=== PATIENT | female | born 1940 | race Caucasian/White ===

== ENCOUNTER 2023-09-24 10:59 | Inpatient (IN) | payer OTHER ==
[2023-09-24] MEDS: methylPREDNISolone NA SUCC 125 MG/2 ML VIAL IVPB ONE (11:35)
[2023-09-24] MEDS: ALBUTEROL SO4 2.5/IPRATROPIUM 0.5 INH SOL 3 ML VIAL.NEB. NEB ONE (11:35)
[2023-09-24 11:55] LABS: VENOUS BASE EXCESS 3.4 mmol/L (-2-2); VENOUS O2 SATURATION 71.6 % (70-80); VENOUS PH 7.381 (7.310-7.410)
[2023-09-24 11:56] LABS: BASO % 0.5 % (0-2.0); EOS % 0.3 % (0-4.5); HEMATOCRIT 40.9 % (32.4-45.2); HEMOGLOBIN 13.2 GM/dL (10.7-15.3); LYMPH % 3.6 % (8-40); MCH 28.7 pg (25.7-33.7); MCHC 32.2 g/dl (32.0-36.0); MEAN CELL VOLUME 89.1 fl (80-96); MEAN PLT VOLUME 7.9 fl (7.5-11.1); NEUT % 89.6 % (42.8-82.8); PLATELET COUNT 208 10^3/uL (134-434); RBC 4.59 M/mm3 (3.60-5.2); RDW 14.4 % (11.6-15.6); WHITE BLOOD COUNT 7.8 K/mm3 (4.0-10.0)
[2023-09-24 12:24] LABS: PH,URINE 7.5 (5.0-8.0); URINE APPEARANCE CLEAR; URINE BILIRUBIN NEGATIVE (NEGATIVE); URINE COLOR DK YELLOW; URINE GLUCOSE (UA) NEGATIVE (NEGATIVE); URINE KETONE NEGATIVE (NEGATIVE); URINE LEUK ESTERASE NEGATIVE (NEGATIVE); URINE NITRITE NEGATIVE (NEGATIVE); URINE PROTEIN TRACE (NEGATIVE)
[2023-09-24 12:45] LABS: POTASSIUM 4.5 mmol/L (3.5-5.1)
[2023-09-24 12:46] LABS: CALCIUM 8.9 mg/dL (8.5-10.1)
[2023-09-24 12:47] LABS: ALBUMIN 3.4 g/dl (3.4-5.0); BLOOD UREA NITROGEN 18.2 mg/dL (7-18)
[2023-09-24 12:50] LABS: CREATININE 0.6 mg/dL (0.55-1.3)
[2023-09-24 12:52] LABS: BILIRUBIN,TOTAL 2.4 mg/dL (0.2-1); TOT PROT 6.2 g/dl (6.4-8.2)
[2023-09-24 12:55] LABS: N-TERMINAL BNP 646.9 pg/ml (5-450)
[2023-09-24 19:35] LABS: INR 1.12 (0.83-1.09)
[2023-09-24 19:38] LABS: ACTIVATED PTT 27.9 SECONDS (25.2-36.5)
[2023-09-24 20:06] LABS: POTASSIUM 4.2 mmol/L (3.5-5.1)
[2023-09-24 20:08] LABS: BLOOD UREA NITROGEN 15.5 mg/dL (7-18); CALCIUM 8.9 mg/dL (8.5-10.1)
[2023-09-24 20:09] LABS: ALBUMIN 3.3 g/dl (3.4-5.0)
[2023-09-24 20:11] LABS: CREATININE 0.6 mg/dL (0.55-1.3)
[2023-09-24 20:13] LABS: BILIRUBIN,TOTAL 2.1 mg/dL (0.2-1); TOT PROT 6.1 g/dl (6.4-8.2)
[2023-09-24 20:47] VITALS: BMI 29.1
[2023-09-24] MEDS: HEPARIN NA (PORCINE) 5,000 UNITS/ML 1ML VIAL SQ SCH (21:56)
[2023-09-25] MEDS: PIPERACILLIN/TAZOB 4.5 GM 4.5 GM in DEXTROSE 5%-WATER 100 ML IVPB ONE (01:35)
[2023-09-25 08:21] LABS: HEMATOCRIT 39.2 % (32.4-45.2); HEMOGLOBIN 12.8 GM/dL (10.7-15.3); MCH 28.8 pg (25.7-33.7); MCHC 32.5 g/dl (32.0-36.0); MEAN CELL VOLUME 88.5 fl (80-96); MEAN PLT VOLUME 8.5 fl (7.5-11.1); PLATELET COUNT 209 10^3/uL (134-434); RBC 4.43 M/mm3 (3.60-5.2); RDW 14.5 % (11.6-15.6); WHITE BLOOD COUNT 9.7 K/mm3 (4.0-10.0)
[2023-09-25 08:24] LABS: POTASSIUM 4.5 mmol/L (3.5-5.1)
[2023-09-25 08:31] LABS: CALCIUM 8.8 mg/dL (8.5-10.1)
[2023-09-25 08:32] LABS: BILIRUBIN,DIRECT 0.7 mg/dL (0.0-0.2); BLOOD UREA NITROGEN 21.8 mg/dL (7-18); MAGNESIUM 2.8 mg/dL (1.8-2.4)
[2023-09-25 08:33] LABS: PHOSPHOROUS 4.4 mg/dL (2.5-4.9); TOT PROT 5.8 g/dl (6.4-8.2)
[2023-09-25 08:34] LABS: BILIRUBIN,DIRECT 0.7 mg/dL (0.0-0.2); BILIRUBIN,TOTAL 1.4 mg/dL (0.2-1)
[2023-09-25 08:35] LABS: BILIRUBIN,TOTAL 1.4 mg/dL (0.2-1); CREATININE 0.6 mg/dL (0.55-1.3); TOT PROT 5.9 g/dl (6.4-8.2)
[2023-09-25] MEDS: PIPERACILLIN/TAZOB 3.375 GM 3.375 GM in DEXTROSE 5%-WATER - 50 ML IVPB SCH ×2 (08:36→17:29)
[2023-09-25] MEDS: ASPIRIN 81 MG CHEWABLE TABLETS PO SCH (09:31)
[2023-09-25] MEDS: DOCUSATE SODIUM 100 MG CAPSULE (FP) PO SCH (09:31)
[2023-09-25] MEDS: FAMOTIDINE 20 MG TABLET PO SCH (09:31)
[2023-09-25] MEDS: TIOTROPIUM BROMIDE 2.5 MCG (SPIRIVA) RESPIMAT INHALER IH SCH (09:31)
[2023-09-25] MEDS: ALBUTEROL SO4 2.5/IPRATROPIUM 0.5 INH SOL 3 ML VIAL.NEB. NEB SCH (09:56)
[2023-09-25] MEDS ORDERED: PATIENT'S OWN MEDICATION (NON-FORMULARY) (Carbidopa/Levodopa [Carbidopa-Levodopa 10-100 Ta PO SCH (10:00)
[2023-09-25] MEDS ORDERED: MAG HYDROX/AL HYDROX/SIMETH 30 ML UNIT-DOSE CUP PO PRN (11:40)
[2023-09-25] MEDS ORDERED: MAGNESIUM HYDROX 2400MG/30ML ORAL SUSPENSION 30 ML CUP PO PRN (11:40)
[2023-09-26] MEDS ORDERED: PIPERACILLIN/TAZOB 4.5 GM 4.5 GM in DEXTROSE 5%-WATER 100 ML IVPB SCH (02:00)
[2023-09-26] MEDS: PIPERACILLIN/TAZOB 4.5 GM 4.5 GM in DEXTROSE 5%-WATER 100 ML IVPB SCH (03:36)
[2023-09-26] MEDS: ASPIRIN COATED 81 MG TABLET.EC PO SCH (09:19)
[2023-09-26 10:07] LABS: BASO % 0.6 % (0-2.0); EOS % 2.1 % (0-4.5); HEMATOCRIT 38.5 % (32.4-45.2); HEMOGLOBIN 12.8 GM/dL (10.7-15.3); LYMPH % 7.5 % (8-40); MCH 29.2 pg (25.7-33.7); MCHC 33.2 g/dl (32.0-36.0); MEAN CELL VOLUME 87.8 fl (80-96); MEAN PLT VOLUME 8.7 fl (7.5-11.1); MONO % 8.1 % (3.8-10.2); NEUT % 81.7 % (42.8-82.8); PLATELET COUNT 227 10^3/uL (134-434); RBC 4.39 M/mm3 (3.60-5.2); RDW 15.1 % (11.6-15.6); WHITE BLOOD COUNT 9.1 K/mm3 (4.0-10.0)
[2023-09-26 10:26] LABS: POTASSIUM 4.4 mmol/L (3.5-5.1)
[2023-09-26 10:28] LABS: CALCIUM 8.7 mg/dL (8.5-10.1)
[2023-09-26 10:29] LABS: ALBUMIN 3.2 g/dl (3.4-5.0); BLOOD UREA NITROGEN 23.7 mg/dL (7-18)
[2023-09-26 10:32] LABS: CREATININE 0.6 mg/dL (0.55-1.3)
[2023-09-26 10:33] LABS: BILIRUBIN,TOTAL 0.8 mg/dL (0.2-1)
[2023-09-26] MEDS ORDERED: CARBIDOPA PO SCH (17:00)
[2023-09-26] MEDS ORDERED: LEVODOPA PO SCH (17:00)
[2023-09-26] MEDS: CARBIDOPA PO SCH (18:14)
[2023-09-26] MEDS: LEVODOPA PO SCH (18:14)
[2023-09-26] MEDS ORDERED: CARBIDOPA/LEVODOPA 25/100 TABLET (FP) PO SCH (22:00)
[2023-09-27] MEDS: LACTATED RINGERS SOLUTION 1,000 ML/1,000 ML INFUS.BAG IV SCH (09:45)
[2023-09-27] MEDS: ERTAPENEM SODIUM 1 GM in SODIUM CHLORIDE 50 ML IVPB SCH (19:30)
[2023-09-28 08:28] LABS: INR 1.02 (0.83-1.09); PROTHROMBIN TIME (PATIENT) 11.8 SEC (9.7-13.0)
[2023-09-28 08:30] LABS: BASO % 1.1 % (0-2.0); EOS % 3.9 % (0-4.5); HEMATOCRIT 38.5 % (32.4-45.2); HEMOGLOBIN 12.4 GM/dL (10.7-15.3); LYMPH % 21.9 % (8-40); MCH 28.5 pg (25.7-33.7); MCHC 32.3 g/dl (32.0-36.0); MEAN CELL VOLUME 88.4 fl (80-96); MEAN PLT VOLUME 8.6 fl (7.5-11.1); NEUT % 62.1 % (42.8-82.8); PLATELET COUNT 225 10^3/uL (134-434); RBC 4.35 M/mm3 (3.60-5.2); RDW 14.8 % (11.6-15.6); WHITE BLOOD COUNT 6.6 K/mm3 (4.0-10.0)
[2023-09-28 08:52] LABS: POTASSIUM 4.4 mmol/L (3.5-5.1)
[2023-09-28 08:55] LABS: CALCIUM 8.9 mg/dL (8.5-10.1)
[2023-09-28 08:56] LABS: ALBUMIN 2.8 g/dl (3.4-5.0); BLOOD UREA NITROGEN 24.2 mg/dL (7-18)
[2023-09-28 08:59] LABS: CREATININE 0.5 mg/dL (0.55-1.3)
[2023-09-28 09:01] LABS: BILIRUBIN,TOTAL 0.6 mg/dL (0.2-1); TOT PROT 5.4 g/dl (6.4-8.2)
[2023-09-28] MEDS: PANTOPRAZOLE 20 MG TABLET PO SCH (09:50)
[2023-09-29] MEDS: ACETAMINOPHEN 1000 MG/100 ML BAG IVPB ONE (07:09)
[2023-09-29 08:54] LABS: BASO % 0.8 % (0-2.0); EOS % 4.5 % (0-4.5); HEMATOCRIT 41.9 % (32.4-45.2); HEMOGLOBIN 13.4 GM/dL (10.7-15.3); LYMPH % 24.5 % (8-40); MCH 28.4 pg (25.7-33.7); MCHC 31.9 g/dl (32.0-36.0); MEAN PLT VOLUME 8.5 fl (7.5-11.1); NEUT % 60.2 % (42.8-82.8); PLATELET COUNT 250 10^3/uL (134-434); RBC 4.71 M/mm3 (3.60-5.2); RDW 14.9 % (11.6-15.6); WHITE BLOOD COUNT 7.4 K/mm3 (4.0-10.0)
[2023-09-29 09:40] LABS: POTASSIUM 4.5 mmol/L (3.5-5.1)
[2023-09-29 09:47] LABS: ALBUMIN 3.1 g/dl (3.4-5.0); BLOOD UREA NITROGEN 22.2 mg/dL (7-18); CALCIUM 9.2 mg/dL (8.5-10.1)
[2023-09-29 09:50] LABS: CREATININE 0.5 mg/dL (0.55-1.3)
[2023-09-29 09:52] LABS: BILIRUBIN,TOTAL 0.5 mg/dL (0.2-1)
[2023-09-29 16:09] LABS: IG G QN IMMUNOGLOBULIN 502 mg/dL (586-1602); IGG SUBCLASS 1 215 mg/dL (248-810); IGG SUBCLASS 2 180 mg/dL (130-555); IGG SUBCLASS 3 48 mg/dL (15-102)
[2023-09-29] MEDS: CARBIDOPA PO SCH (16:59)
[2023-09-29] MEDS: LEVODOPA PO SCH (16:59)
[2023-09-30 09:13] LABS: BASO % 0.9 % (0-2.0); HEMATOCRIT 40.6 % (32.4-45.2); HEMOGLOBIN 13.2 GM/dL (10.7-15.3); LYMPH % 20.5 % (8-40); MCH 28.9 pg (25.7-33.7); MCHC 32.6 g/dl (32.0-36.0); MEAN CELL VOLUME 88.6 fl (80-96); MEAN PLT VOLUME 8.6 fl (7.5-11.1); MONO % 9.2 % (3.8-10.2); NEUT % 65.4 % (42.8-82.8); PLATELET COUNT 250 10^3/uL (134-434); RBC 4.58 M/mm3 (3.60-5.2); RDW 14.5 % (11.6-15.6); WHITE BLOOD COUNT 7.6 K/mm3 (4.0-10.0)
[2023-09-30 09:34] LABS: POTASSIUM 4.6 mmol/L (3.5-5.1)
[2023-09-30 09:38] LABS: CALCIUM 9.1 mg/dL (8.5-10.1)
[2023-09-30 09:39] LABS: ALBUMIN 3.1 g/dl (3.4-5.0); BLOOD UREA NITROGEN 27.2 mg/dL (7-18)
[2023-09-30 09:43] LABS: CREATININE 0.5 mg/dL (0.55-1.3)
[2023-09-30 09:44] LABS: BILIRUBIN,TOTAL 0.5 mg/dL (0.2-1)
[2023-09-30] MEDS ORDERED: PROPOFOL 20 ML ONE (10:23)
[2023-09-30] MEDS ORDERED: DEXAMETHASONE SOD PHOSPHATE 4 MG/1 ML VIAL ONE (10:24)
[2023-09-30] MEDS ORDERED: LIDOCAINE HCL/PF 2% SDV 5ML VIAL ONE (10:24)
[2023-09-30] MEDS ORDERED: ROCURONIUM BROMIDE 50 MG/5 ML SYRINGE ONE ×2 (10:24→12:20)
[2023-09-30] MEDS ORDERED: ONDANSETRON 4 MG/2 ML VIAL ONE (10:24)
[2023-09-30] MEDS ORDERED: HEPARIN NA (PORCINE) 5,000 UNITS/ML 1ML VIAL ONE (10:25)
[2023-09-30] MEDS ORDERED: cefOXitin SODIUM 2 GM VIAL (RESTRICTED TO ID) IVPB ONE (10:25)
[2023-09-30] MEDS ORDERED: BUPIVACAINE HCL/PF 0.25% (2.5MG/ML) 10 ML VIAL ONE ×2 (10:25→10:56)
[2023-09-30] MEDS ORDERED: INDOCYANINE GREEN 25 MG/10 ML VIAL IVPUSH ONE (10:25)
[2023-09-30] MEDS ORDERED: ONDANSETRON 4 MG/2 ML VIAL IVPUSH PRN ×2 (10:52→14:16)
[2023-09-30] MEDS: BUPIVACAINE HCL/PF 0.25% (2.5MG/ML) 10 ML VIAL IJ ONE (12:20)
[2023-09-30] MEDS ORDERED: ACETAMINOPHEN INJECTION 100 ML IVPB ONE (12:22)
[2023-09-30] MEDS ORDERED: SUGAMMADEX SODIUM 200 MG/2 ML VIAL ONE (12:48)
[2023-09-30] MEDS ORDERED: oxyCODONE HCL 5 MG TABLET PO PRN (14:16)
[2023-09-30] MEDS ORDERED: MAG HYDROX/AL HYDROX/SIMETH 30 ML UNIT-DOSE CUP PO PRN (14:16)
[2023-09-30] MEDS: ACETAMINOPHEN 325 MG TABLET (FP) PO SCH (17:27)
[2023-09-30] MEDS: LACTATED RINGERS SOLUTION 1,000 ML IV SCH ×2 (17:28→19:22)
[2023-09-30] MEDS: CARBIDOPA/LEVODOPA 10/100 TABLET (FP) PO SCH ×2 (17:32→19:22)
[2023-10-01 09:07] LABS: BASO % 0.4 % (0-2.0); EOS % 0.9 % (0-4.5); HEMATOCRIT 35.6 % (32.4-45.2); HEMOGLOBIN 11.8 GM/dL (10.7-15.3); LYMPH % 14.7 % (8-40); MCH 29.2 pg (25.7-33.7); MCHC 33.1 g/dl (32.0-36.0); MEAN CELL VOLUME 88.1 fl (80-96); MONO % 10.1 % (3.8-10.2); NEUT % 73.9 % (42.8-82.8); PLATELET COUNT 250 10^3/uL (134-434); RBC 4.04 M/mm3 (3.60-5.2); RDW 14.9 % (11.6-15.6); WHITE BLOOD COUNT 9.5 K/mm3 (4.0-10.0)
[2023-10-01 09:44] LABS: POTASSIUM 4.4 mmol/L (3.5-5.1)
[2023-10-01 09:48] LABS: ALBUMIN 2.7 g/dl (3.4-5.0); BLOOD UREA NITROGEN 17.5 mg/dL (7-18); CALCIUM 8.9 mg/dL (8.5-10.1); MAGNESIUM 2.5 mg/dL (1.8-2.4)
[2023-10-01 09:50] LABS: CREATININE 0.4 mg/dL (0.55-1.3); PHOSPHOROUS 3.6 mg/dL (2.5-4.9)
[2023-10-01 09:52] LABS: BILIRUBIN,TOTAL 0.6 mg/dL (0.2-1)
[2023-10-01 09:53] LABS: TOT PROT 5.4 g/dl (6.4-8.2)
[2023-10-01] MEDS: PANTOPRAZOLE 20 MG TABLET PO SCH (10:14)
[2023-10-01] MEDS: ASPIRIN COATED 81 MG TABLET.EC PO SCH (10:14)
[2023-10-01] MEDS: ERTAPENEM SODIUM 1 GM in SODIUM CHLORIDE 50 ML IVPB SCH (10:16)
[2023-10-01] MEDS: TIOTROPIUM BROMIDE 2.5 MCG (SPIRIVA) RESPIMAT INHALER IH SCH (11:52)
[2023-10-02 15:32] VITALS: BP 109/54; PULSE 52; RESP 18; TEMP 98.1
== END 2023-10-02 16:53 | DRG 417 ==
LOC: JER 10:59 → JERBED 18:21 → J6S 20:03 → J8W 09-27 12:57
PROVIDERS: ADMIT Internal Medicine; ATTEND Internal Medicine
PROC: 8E0W4CZ Robotic Assisted Procedure of Trunk Region, Percutaneous Endoscopic Approach (ICD-10-PCS; 2023-09-30)
PROC: 0FT44ZZ Resection of Gallbladder, Percutaneous Endoscopic Approach (ICD-10-PCS; principal; 2023-09-30 10:30)
DX: B17.9 Acute viral hepatitis, unspecified (principal); G93.41 Metabolic encephalopathy; J96.01 Acute respiratory failure with hypoxia; K72.00 Acute and subacute hepatic failure without coma; K81.0 Acute cholecystitis; J44.1 Chronic obstructive pulmonary disease with (acute) exacerbation; R00.0 Tachycardia, unspecified; E78.5 Hyperlipidemia, unspecified; G20.A1 Parkinson's disease without dyskinesia, without mention of fluctuations; I10 Essential (primary) hypertension; R79.89 Other specified abnormal findings of blood chemistry; R29.6 Repeated falls; E80.6 Other disorders of bilirubin metabolism; K57.90 Diverticulosis of intestine, part unspecified, without perforation or abscess without bleeding; N28.1 Cyst of kidney, acquired; Z85.3 Personal history of malignant neoplasm of breast
CPT/HCPCS: 0241U-QW; 36415; 70450-TC; 71045-TC-FY; 71046-TC-FY; 71250-TC; 74177-TC; 74182-TC; 76705-TC; 80048; 80053; 80076; 80307; 81003; 82728; 82784; 82787; 82803; 82962; 83036; 83516; 83605; 83615; 83690; 83735; 83880; 83883; 84100; 84443; 84484; 85025; 85027; 85045; 85610; 85730; 86038; 86708; 86709; 86803; 86850; 86900; 86901; 87040; 87086; 87186; 87340; 87350; 87517; 87522; 87635; 88304-TC; 93005; 93010; 94010; 94640; 94760; 97116-GP; 99285-25; J0131; J1644; Q9967

== ENCOUNTER 2024-01-13 10:35 | Emergency (ER) | payer OTHER ==
[2024-01-13 10:58] VITALS: TEMP 97.9; BMI 28.3
[2024-01-13] MEDS ORDERED: LIDOCAINE 4% PATCH TP ONE (11:47)
[2024-01-13] MEDS: LIDOCAINE 4% PATCH TP ONE (11:54)
[2024-01-13] MEDS ORDERED: ACETAMINOPHEN 325 MG TABLET (FP) ONE (12:15)
[2024-01-13] MEDS: ACETAMINOPHEN 500 MG TABLET (FP) PO ONE (12:21)
[2024-01-13] MEDS ORDERED: morphine SULFATE 4 MG/ML VIAL ONE (15:36)
[2024-01-13 15:55] LABS: BASO % 0.5 % (0-2.0); EOS % 1.5 % (0-4.5); HEMATOCRIT 39.8 % (32.4-45.2); HEMOGLOBIN 13.1 GM/dL (10.7-15.3); LYMPH % 16.4 % (8-40); MCH 28.4 pg (25.7-33.7); MCHC 32.8 g/dl (32.0-36.0); MEAN CELL VOLUME 86.4 fl (80-96); MONO % 9.3 % (3.8-10.2); NEUT % 72.3 % (42.8-82.8); PLATELET COUNT 289 10^3/uL (134-434); RBC 4.61 M/mm3 (3.60-5.2); WHITE BLOOD COUNT 10.3 K/mm3 (4.0-10.0)
[2024-01-13] MEDS: morphine CARPU-JECT 4 MG/1 ML DISP.SYRIN IVPUSH ONE (15:55)
[2024-01-13 16:14] LABS: POTASSIUM 5.6 mmol/L (3.5-5.1)
[2024-01-13 16:17] LABS: ALBUMIN 3.1 g/dl (3.4-5.0); BLOOD UREA NITROGEN 21.2 mg/dL (7-18); CALCIUM 8.8 mg/dL (8.5-10.1)
[2024-01-13 16:21] LABS: CREATININE 0.6 mg/dL (0.55-1.3)
[2024-01-13 16:22] LABS: BILIRUBIN,TOTAL 0.8 mg/dL (0.2-1); TOT PROT 6.5 g/dl (6.4-8.2)
[2024-01-13] MEDS ORDERED: PIPERACILLIN/TAZOB 4.5 GM 4.5 GM/100 ML BAG IVPB ONE (17:54)
[2024-01-13] MEDS: PIPERACILLIN/TAZOB 4.5 GM 4.5 GM in DEXTROSE 5%-WATER 100 ML IVPB ONE (18:05)
[2024-01-13 19:43] VITALS: BP 140/70; PULSE 63; RESP 18
[2024-01-13] MEDS ORDERED: LIDOCAINE PATCH REMOVAL MC ONE (22:00)
== END 2024-01-13 19:55 | disposition short-term general hospital (02) ==
LOC: JER 10:35
DX: M54.50 Low back pain, unspecified (principal); K80.50 Calculus of bile duct without cholangitis or cholecystitis without obstruction; R10.9 Unspecified abdominal pain
CPT/HCPCS: 0241U-QW; 36415; 72131-TC; 74176-TC; 76705-TC; 80053; 83690; 85025; 99285-25

== ENCOUNTER 2025-02-17 08:32 | Emergency (ER) | payer OTHER ==
[2025-02-17 08:46] VITALS: BMI 28.3
[2025-02-17 09:31] LABS: MCHC 31.2 g/dl (32.2-35.5); MEAN CELL VOLUME 91.0 fl (79.4-94.8); MEAN PLT VOLUME 10.2 fl (9.4-12.3); RDW 13.5 % (12.5-17.0)
[2025-02-17 10:08] LABS: CO2 35.0 mmol/L (21-32); GLUCOSE,RANDOM 164.0 mg/dL (74-106)
[2025-02-17 10:11] LABS: CREATININE 0.7 mg/dL (0.55-1.3); SGOT/AST 11.0 U/L (15-37); SGPT/ALT 13.0 U/L (13-61)
[2025-02-17 10:14] LABS: ALK PHOS 58.0 U/L (45-117)
[2025-02-17 10:20] LABS: MONOCYTE # 0.30 x10^3/uL (0.24-0.86)
[2025-02-17 10:31] LABS: TOT PROT 6.2 g/dl (6.4-8.2)
[2025-02-17] MEDS ORDERED: CEFTRIAXONE 1 GM/50 ML BAG ONE (11:53)
[2025-02-17] MEDS: CEFTRIAXONE 1,000 MG in DEXTROSE 5%-WATER - 50 ML IVPB ONE (11:56)
[2025-02-17] MEDS ORDERED: AZITHROMYCIN IVPB 500 MG/250 ML BAG IVPB ONE (12:05)
[2025-02-17] MEDS: AZITHROMYCIN IVPB 500 MG in DEXTROSE 5%-WATER - 250 ML IVPB ONE (12:11)
[2025-02-17 12:53] LABS: HCV DIAGNOSTIC IN-HOUSE W/RFLX NON-REACTIVE (NONREACTIVE)
[2025-02-17 12:57] LABS: HIV INTERPRETATION NEGATIVE (NEGATIVE)
[2025-02-17 13:28] VITALS: TEMP 98
[2025-02-17 21:38] VITALS: BP 152/69; PULSE 70; RESP 18
== END 2025-02-17 21:15 | disposition home or self-care (01) ==
LOC: JER 08:32
DX: J18.9 Pneumonia, unspecified organism (principal); R06.02 Shortness of breath; R05.9 Cough, unspecified
CPT/HCPCS: 36415; 71045-TC-FY; 80053; 83735; 84484; 85025; 86803; 87389; 87637-QW; 93005; 93010; 99285-25